=== PATIENT | male | born 1960 | race Hispanic/Latino ===

== ENCOUNTER 2018-03-11 09:55 | Emergency (ER) | payer OTHER ==
--- OUTSIDE RECORDS SUMMARY | 2018-03-11 09:57 | XMS REPORT | Clinical Summary ---
:1960 Author Organization [facility] Address [address] [place] [address] Care Team Providers Name Role Phone Khanh Charles MD Primary Care Provider Allergies No Known Allergies Current Medications Prescription Sig. Disp. Refills Start Date End Date Status moxifloxacin Administer 1 drop Active (VIGAMOX) 0.5 % into the left eye ophthalmic solution 4 (four) times a day. keTOROlac (ACULAR Administer 1 drop 5 mL 0 02/10/2018 Active LS) 0.4 % into the left eye ophthalmic solution 2 (two) times a day. prednisoLONE Administer 1 drop 10 mL 0 02/10/2018 Active acetate (PRED into the left eye FORTE) 1 % 2 (two) times a ophthalmic day. suspension prednisoLONE Administer 1 drop 02/10/2018 Discontinued acetate (PRED into the left eye FORTE) 1 % 4 (four) times a ophthalmic day. suspension keTOROlac (ACULAR Administer 1 drop 02/10/2018 Discontinued LS) 0.4 % into the left eye ophthalmic solution 4 (four) times a day. Active Problems Problem Noted Date Pseudophakia 01/26/2018 Overview: OS 01/26/18 PCB00 24.0 OD 03/02/18 PCB00 25.0 Last Assessment & Plan: OS 01/26/18 PCB00 24.0 OD 03/02/18 PCB00 25.0 s/p phaco/PCIOL . Doing well. Take drops as per handout/instruction sheet. IOP 37--added Combigan OD BID--sample given last visit for other eye. ATs PRN Patient defers return for followup, will call if any problems, otherwise [address] Keenan. Combined forms of age-related cataract of both eyes 01/13/2018 Last Assessment & Plan: Visually significant. The risks/benefits/alternatives of cataract surgery were discussed with the patient. He understands and will proceed with phaco OS then OD. OS 01/26/18, OD 03/02/18. History of LASIK, will need post-LVC calcs. Patient defers premium options and defers FLACS. Understands will need glasses afterwards. Post-LVC calcs done. OS USE PCB00 24.0 [LATER OD USE PCB00 25.0] History of laser refractive surgery 01/13/2018 Overview: LASIK OU mid . Last Assessment & Plan: LASIK OU mid . Encounters Date Type Specialty Care Team Description 03/03/2018 Office Visit Ophthalmology Mohan Pete Pseudophakia (Primary Dx) MD Dwight 03/02/2018 [facility] Plastic Surgery Mohan Pete MD 03/02/2018 Anesthesia Event Plastic Surgery Alexa Rosa MD 03/02/2018 Procedure Pass Plastic Surgery 03/02/2018 Surgery Plastic Surgery Mohan Pete PHACOEMULSIFICATION WITH MD Dwight INTRAOCULAR LENS IMPLANT, RIGHT EYE 02/10/2018 Telephone Ophthalmology Mohan Pete MD 02/02/2018 Telephone Ophthalmology Mohan Pete MD 02/01/2018 Telephone Ophthalmology Mohan Pete MD 01/27/2018 Office Visit Ophthalmology Mohan Pete Pseudophakia (Primary Dx) MD Dwight 01/26/2018 [facility] Plastic Surgery Mohan Pete MD 01/26/2018 Telephone Ophthalmology Mohan Pete MD 01/26/2018 Anesthesia Event Plastic Surgery Alexa Rosa MD 01/26/2018 Procedure Pass Plastic Surgery 01/26/2018 Surgery Plastic Surgery Mohan Pete PHACO W/ IOL MD Dwight 01/13/2018 Office Visit Ophthalmology Mohan Pete Combined forms of age- related cataract of both eyes (Primary Dx); MD Dwight Nuclear sclerotic cataract of both eyes 01/06/2018 Telephone Ophthalmology Yaz Matias MD 12/16/2017 Office Visit Ophthalmology Yaz Matias Nuclear age-related MD Venkat cataract, both eyes Nilesh Keenan (Primary Dx) II, MD after 03/10/2017 Social History Tobacco Use Types Packs/Day Years Used Date Never Smoker Smokeless Tobacco: Never Used Alcohol Use Drinks/Week oz/Week Comments No Sex Assigned at Date Recorded Not on file Last Filed Vital Signs Vital Sign Reading Time Taken Blood Pressure 108/66 03/02/2018 8:00 AM CDT Pulse 69 03/02/2018 8:00 AM CDT Temperature 36.5 C (97.7 F) 03/02/2018 7:54 AM CDT Respiratory Rate 16 03/02/2018 8:00 AM CDT Oxygen Saturation 94% 03/02/2018 8:00 AM CDT Inhaled Oxygen Concentration - - Weight 88.2 kg (194 lb 6.4 oz) 03/02/2018 7:42 AM CDT Height 167.6 cm (5' 6") 03/02/2018 7:42 AM CDT Body Mass Index 31.38 03/02/2018 7:42 AM CDT Plan of Treatment Date Type Specialty Care Team Description 03/31/2018 Office Visit Ophthalmology Nilesh Keenan II, MD [address] [place] [address] [phone] Health Maintenance Due Date Last Done Comments COLONOSCOPY 2012 SHINGRIX VACCINE (#1) 2012 INFLUENZA VACCINE 06/09/2018 Implants Implanted Type Area Biomass Plant Technician Device Expiration Model / Serial Identifier Date / Lot Lens Iol Tecnis Monofocal Preloaded 1 Piece Pcb 24.0d - [id number] Left: [employer] 12/22/2020 [id number] / Implanted: 01/26/2018 (Quantity not on file) [employer] [id number] / [id number] Lens Iol Tecnis Monofocal Preloaded 1 Piece Pcb 25.0d - [id number] Right: [employer] 05/29/2020 [id number] / Implanted: 03/02/2018 (Quantity not on file) [employer] [id number] / [id number] Procedures Procedure Name Priority Date/Time Associated Comments Diagnosis PHACOEMULSIFICATION WITH 03/02/2018 7:30 AM Combined forms of INTRAOCULAR LENS IMPLANT, CDT age-related RIGHT EYE cataract, right eye Case Notes REG LENS Special Needs REG LENS PHACO W/ IOL 01/26/2018 9:00 AM CDT Combined forms of age-related cataract , left eye Case Notes REG LENS Special Needs REG LENS CORNEAL TOPOGRAPHY - Routine 01/13/2018 2:27 PM Nuclear sclerotic Results for this OU - BOTH EYES ARCHITECT MARINE cataract of both procedure are in eyes the results section. IOL BIOMETRY - OU - Routine 01/13/2018 2:27 PM Nuclear sclerotic Results for this BOTH EYES ARCHITECT MARINE cataract of both procedure are in eyes the results section. after 03/10/2017 Results Corneal Topography, Galilei - OU (01/13/2018 2:27 PM) Narrative Right Eye Findings include previous refractive surgery. Left Eye Findings include previous refractive surgery. IOL Master - OU - Both Eyes (01/13/2018 2:27 PM) Component Value Ref Range Axial Length-OD 25.42 Axial Length-OS 25.25 Anterior Chamber Depth-OD 3.21 Anterior Chamber Depth-OS 3.32 White to White-OD 13.0 White to White-OS 12.9 Narrative Right Eye Axial length was 25.42. White to white was 13.0. AC Depth was 3.21. Left Eye Axial length was 25.25. White to white was 12.9. AC Depth was 3.32. Notes IOL CALCULATION ORDER SHEET DATE OF TESTIN01/13/18 DATE OF SURGERY: ODOS RK PRK LASIK SILICONEOIL SCLERAL BUCKLE PKP CONTACT LENSES: DATE LAST WORN:TYPE:RGP: SOFT: DOMINANT EYE: TARGET REFRACTION: ODOS TESTING RESULTS: OD OS K1 K2 AXIS TOTAL CYL K1 K2 AXIS TOTAL CYL AUTO K 37.50 37.75 115 0.25 38.50 38.75 145 0.25 IOLMASTER 37.41 37.75 110 0.33 38.50 38.79 143 0.29 ATLAS GALILEI SimK GALILEI TCP AXIAL LENGTH (in mm) OD OS IOL MASTER 25.42 25.25 SONOMED/ACCUTOME IMMERSION Dr BeaverDr. Shubham MATIAS FINAL IOL LENS CHOICE:OD OS BACKUP LENS :OD OS after 03/10/2017 Insurance Payer Benefit Plan / Group Subscriber ID Type Phone Address AETNA AETNA HMO,POS,EPO, MC/EC xxxxxxxxxx HMO
[2018-03-11] MEDS ORDERED: TETRACAINE HCL 0.5% 2ML OPTH ONE (10:36)
[2018-03-11] MEDS ORDERED: FLUORESCEIN SODIUM 0.6 MG/WRAP ONE (10:36)
--- NOTE | 2018-03-11 11:20 | ER ---
Nurse's Notes [facility] Name: tK Perez Age: 57 yrs Sex: Male : 1960 Arrival Date: 03/11/2018 Time: 10:00 Bed 9 Private MD: Erickson Charles Diagnosis: Conjunctival hemorrhage, left eye-with abrasion Presentation: 03/11 10:08 Presenting complaint: Patient states: hit left eye with bungee cord about 30 minutes, iw now has pain and redness in eye, recently had implant for cataract X 5 weeks ago, pt c/o blurry vision to left eye but slowly getting better. Transition of care: patient was not received from another setting of care. Onset of symptoms was March 11, 2018. Initial Sepsis Screen: Does the patient meet any 2 criteria? No. Patient's initial sepsis screen is negative. Does the patient have a suspected source of infection? No. Patient's initial sepsis screen is negative. Care prior to arrival: None. 10:08 Method Of Arrival: Ambulatory iw 10:08 Acuity: VANE 3 iw Triage Assessment: 11:52 General: Appears in no apparent distress. uncomfortable, Behavior is calm, cooperative, hj appropriate for age. Pain: Complains of pain in left eye. Historical: - Allergies: 10:11 NKA; iw - Home Meds: 10:11 None [Active]; iw - PMHx: 10:11 None; iw - PSHx: 10:11 cataract; iw - Immunization history:: Adult Immunizations up to date. - Social history:: Smoking status: Patient/guardian denies using tobacco. Screenin:52 Abuse screen: Denies threats or abuse. Denies injuries from another. Nutritional hj screening: No deficits noted. Tuberculosis screening: No symptoms or risk factors identified. Fall Risk None identified. Vital Signs: 10:11 BP 131 / 99; Pulse 81; Resp 16; Temp 98.1; Pulse Ox 97% on R/A; Weight 86.18 kg; Height iw 5 ft. 6 in. (167.64 cm); Pain 0/10; 10:11 Body Mass Index 30.67 (86.18 kg, 167.64 cm) iw Visual Acuity: 11:05 Left Eye Visual acuity 20/50, Pupil size 3 mm, ; Right Eye Visual acuity 20/50, Pupil bm6 size 3 mm, ; Both Eyes Visual acuity 20/40; Without Lenses; ED Course: 10:00 Patient arrived in ED. mr 10:00 Erickson Charles DO is Private Physician. mr 10:11 Triage completed. iw 10:11 Arm band placed on. iw 10:12 Clemencia Becerril, RN is Primary Nurse. iw 10:14 Barry Dueñas MD is Attending Physician. wa 10:22 Chano Zheng PA is PHCP. 11:53 Patient has correct armband on for positive identification. Bed in low position. Call hj light in reach. Side rails up X 1. 11:53 No provider procedures requiring assistance completed. Patient did not have IV access hj during this emergency room visit. Administered Medications: 11:08 Drug: Tetracaine Drops 0.5 % 1 drops Route: Ophthalmic; Site: left eye; iw 11:34 Not Given (Physician Discretion): Gentamicin Ointment 0.3 % 0.5 inches Ophthalmic once; cp Left Eye. apply to left eye 3 times daily for 7 days 11:52 Drug: Gentamicin Drops 0.3 % 2 drops Route: Ophthalmic; Site: left eye; 11:52 Follow up: Response: No adverse reaction Outcome: 11:19 Discharge ordered by MD. cp 11:53 Discharged to home ambulatory, with family. hj 11:53 Condition: stable 11:53 Discharge instructions given to patient, family, Instructed on discharge instructions, follow up and referral plans. medication usage, Demonstrated understanding of instructions, follow-up care, medications, Prescriptions given X 1. 11:53 Patient left the ED. Signatures: Lina Faustin mr Clemencia Becerril RN RN Miguel Marie RN RN hj Page, Corey, PA PA cp Murray, Brett bm6 Barry Dueñas MD MD wa
--- NOTE | 2018-03-11 11:20 | EDPHYS ---
Physician Documentation [facility] Name: Kt Perez Age: 57 yrs Sex: Male : 1960 Arrival Date: 03/11/2018 Time: 10:00 Bed 9 Private MD: Joey Charlesh ED Physician Barry Dueñas HPI: 03/11 11:00 This 57 yrs old Unknown Male presents to ER via Ambulatory with complaints of left eye cp injury. 11:00 The patient sustained reports strap swung back and struck left eye, to the left eye. cp Onset: The symptoms/episode began/occurred today. Patient wears glasses. 11:00 Associated signs and symptoms: Pertinent negatives: ear ache, fever, vision loss. cp Historical: - Allergies: 10:11 NKA; iw - Home Meds: 10:11 None [Active]; iw - PMHx: 10:11 None; iw - PSHx: 10:11 cataract; iw - Immunization history:: Adult Immunizations up to date. - Social history:: Smoking status: Patient/guardian denies using tobacco. ROS: 11:10 Constitutional: Negative for body aches, chills, fever, poor PO intake. cp 11:10 ENT: Negative for injury, pain, and discharge. cp 11:10 Eyes: Positive for injury or acute deformity, pain, redness, of the outer aspect of conjuctiva of left eye. 11:10 Cardiovascular: Negative for chest pain, palpitations. 11:10 Respiratory: Negative for cough, wheezing. 11:10 Abdomen/GI: Negative for nausea, vomiting, and diarrhea. 11:10 Skin: Negative for cellulitis, rash. 11:10 Neuro: Negative for altered mental status, headache, weakness. 11:10 All other systems are negative. Exam: 11:14 Visual Acuity: verbal report from tech. cp 11:14 Constitutional: This is a well developed, well nourished patient who is awake, alert, and in no acute distress. Head/Face: Normocephalic, atraumatic. 11:14 Eyes: Periorbital structures: appear normal, Pupils: equal, round, and reactive to cp light and accomodation, Extraocular movements: intact throughout, Conjunctiva: subconjunctival hemorrhage(s), seen in the left eye, lateral aspect, Corneas: abrasion, is not appreciated, foreign body, is not appreciated, a fluorescein strip employed to appreciate the findings, Sclera: abrasion, of the lateral aspect of conjunctiva of left eye, Anterior chamber: no acute changes, Lids and lashes: appear normal, bilaterally, Visual bradley: are intact, Examination of the other eye reveals no obvious gross abnormality. 11:14 ENT: External ear(s): are unremarkable, Ear canal(s): are normal, clear, TM's: dullness, bilaterally, Nose: is normal, Mouth: Lips: moist, Oral mucosa: pink and intact, moist, Posterior pharynx: is normal, airway is patent, no erythema, no exudate. 11:14 Neck: C-spine: vertebral tenderness, is not appreciated, crepitus, is not appreciated, ROM/movement: is normal, is supple, without pain, no range of motions limitations, no nuchal rigidity. 11:14 Chest/axilla: Inspection: normal, Palpation: is normal, no crepitus, no tenderness. 11:14 Cardiovascular: Rate: normal, Rhythm: regular. 11:14 Respiratory: the patient does not display signs of respiratory distress, Respirations: normal, no use of accessory muscles, no splinting, labored breathing, is not present, Breath sounds: are clear throughout, no decreased breath sounds, no stridor, no wheezing. 11:14 Abdomen/GI: Exam negative for discomfort, distension, guarding, Inspection: abdomen appears normal. 11:14 Skin: cellulitis, is not appreciated, no rash present. 11:14 Neuro: Orientation: to person, place \T\ time. Cerebellar function: is grossly normal, Motor: moves all fours, strength is normal, Sensation: no obvious gross deficits. Vital Signs: 10:11 BP 131 / 99; Pulse 81; Resp 16; Temp 98.1; Pulse Ox 97% on R/A; Weight 86.18 kg; Height iw 5 ft. 6 in. (167.64 cm); Pain 0/10; 10:11 Body Mass Index 30.67 (86.18 kg, 167.64 cm) iw Visual Acuity: 11:05 Left Eye Visual acuity 20/50, Pupil size 3 mm, ; Right Eye Visual acuity 20/50, Pupil bm6 size 3 mm, ; Both Eyes Visual acuity 20/40; Without Lenses; MDM: 10:14 Patient medically screened. ok 11:18 Data reviewed: vital signs, nurses notes, and as a result, I will discharge patient. 11:18 Differential diagnosis: Corneal abrasion of left eye. Corneal ulcer of left eye. cp Foreign body in left eye. Counseling: I had a detailed discussion with the patient and/or guardian regarding: the historical points, exam findings, and any diagnostic results supporting the discharge/admit diagnosis, the need for outpatient follow up, an opthalmologist, to return to the emergency department if symptoms worsen or persist or if there are any questions or concerns that arise at home. Response to treatment: the patient's symptoms have markedly improved after treatment. 03/11 10:24 Order name: Visual Acuity; Complete Time: 11:08 03/11 10:24 Order name: Eye Tray; Complete Time: 10:37 03/11 10:24 Order name: Fluoresene Opth strip; Complete Time: 10:37 03/11 10:33 Order name: Misc. Order: eye irrigation; Complete Time: 11:08 Administered Medications: 11:08 Drug: Tetracaine Drops 0.5 % 1 drops Route: Ophthalmic; Site: left eye; 11:34 Not Given (Physician Discretion): Gentamicin Ointment 0.3 % 0.5 inches Ophthalmic once; cp Left Eye. apply to left eye 3 times daily for 7 days 11:52 Drug: Gentamicin Drops 0.3 % 2 drops Route: Ophthalmic; Site: left eye; 11:52 Follow up: Response: No adverse reaction Disposition: 03/12 07:03 Co-signature as Attending Physician, Barry Dueñas MD I agree with the assessment and ok plan of care. Disposition: 03/11/18 11:19 Discharged to Home. Impression: Conjunctival hemorrhage, left eye - with abrasion. - Condition is Stable. - Discharge Instructions: Subconjunctival Hemorrhage. - Prescriptions for Gentamicin 0.3 % Ophthalmic Drops - instill 1 drop by OPHTHALMIC route every 4 hours for 7 days; 1 bottle. - Medication Reconciliation Form, Thank You Letter, Antibiotic Education, Prescription Opioid Use form. - Follow up: Private Physician; When: primary eye doctor tomorrow; Reason: Recheck today's complaints. - Problem is new. - Symptoms have improved. Signatures: Jone, ClemenciaRAMYA morales RN, Henry, RN RN hj Page, Corey, PA PA cp Appiah, William, MD MD wa Corrections: (The following items were deleted from the chart) 03/11 11:53 11:19 03/11/2018 11:19 Discharged to Home. Impression: Conjunctival hemorrhage, left hj eye - with abrasion. Condition is Stable. Forms are Medication Reconciliation Form, Thank You Letter, Antibiotic Education, Prescription Opioid Use. Follow up: Private Physician; When: primary eye doctor tomorrow; Reason: Recheck today's complaints. Problem is new. Symptoms have improved. cp
[2018-03-11] MEDS ORDERED: GENTAMICIN 0.3% OPTH OINT 3.5GM LEFT EYE SCH (11:30)
[2018-03-11] MEDS ORDERED: GENTAMICIN 0.3% OPTH DROP 5ML ONE (11:40)
== END 2018-03-11 11:53 | disposition home or self-care (01) ==
LOC: ER 09:55
DX: H11.32 Conjunctival hemorrhage, left eye (principal); S05.02XA Injury of conjunctiva and corneal abrasion without foreign body, left eye, initial encounter; S00.212A Abrasion of left eyelid and periocular area, initial encounter; W22.8XXA Striking against or struck by other objects, initial encounter; Y92.9 Unspecified place or not applicable
CPT/HCPCS: 99283

== ENCOUNTER 2019-02-21 10:28 | Emergency (ER) | payer OTHER ==
--- OUTSIDE RECORDS SUMMARY | 2019-02-21 10:30 | XMS REPORT | Clinical Summary ---
:1960 Author Organization [facility] Address [address] [place] [address] Care Team Providers Name Role Phone Khanh Charles MD Primary Care Provider Allergies No Known Allergies Medications Medication Sig Dispensed Refills Start Date End Date Status peg 400-propylene Use one drop in 1.5 mL 2 05/28/2018 Active glycol (SYSTANE, the morning both PROPYLENE GLYCOL,) eyes and as 0.4-0.3 % drops needed for dryness moxifloxacin Administer 1 0 Discontinued (VIGAMOX) 0.5 % drop into the 8 ophthalmic left eye 4 solution (four) times a day. keTOROlac (ACULAR Administer 1 5 mL 0 02/10/2018 Discontinued LS) 0.4 % drop into the 8 ophthalmic left eye 2 (two) solution times a day. prednisoLONE Administer 1 10 mL 0 02/10/2018 Discontinued acetate (PRED drop into the 8 FORTE) 1 % left eye 2 (two) ophthalmic times a day. suspension brimonidine-timolo Administer 1 0 Discontinued l (COMBIGAN) drop to the 8 0.2-0.5 % right eye 3 ophthalmic (three) times a solution day. gentamicin Administer 1 0 Discontinued (GARAMYCIN) 0.3 % drop into the 8 ophthalmic left eye every 4 solution (four) hours. 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 (Primary Dx) 03/19/2018 Telephone Ophthalmology Mohan Pete MD 03/15/2018 Telephone Ophthalmology Mohan Pete MD 03/12/2018 Office Visit Ophthalmology Benjamin, Hemorrhage of MD Samantha conjunctiva, left Nilesh Keenan (Primary Dx) MD SHAY 03/03/2018 Office Visit Ophthalmology Mohan Pete Pseudophakia (Primary Dx) MD Dwight 03/02/2018 Surgery Plastic Surgery Mohan Pete PHACOEMULSIFICATION WITH MD Dwight INTRAOCULAR LENS IMPLANT, RIGHT EYE 03/02/2018 Anesthesia Event Plastic Surgery Alexa Rosa MD 03/02/2018 [facility] Plastic Surgery Mohan Pete Encounter MD Dwight after 02/20/2018 Social History Tobacco Use Types Packs/Day Years Used Date Never Smoker Smokeless Tobacco: Never Used Alcohol Use Drinks/Week oz/Week Comments No Sex Assigned at Date Recorded Not on file Job Start Date Occupation Industry Not on file Not on file Not on file Travel History Travel Start Travel End No recent travel history available. Last Filed Vital Signs Vital Sign Reading [...] Treatment Date Type Specialty Care Team Description 03/04/2019 Office Visit Ophthalmology Keenan, Nilesh Navarro II, [place] [address] [address] Health Maintenance Due Date Last Done Comments COLON CANCER SCREENING 2012 SHINGLES VACCINES (#1) 2012 INFLUENZA VACCINE 06/09/2019 Implants Implanted Type Area Translator Device Shelf Model / Serial Identifier Expiration / Lot Date Lens Iol Tecnis Monofocal Preloaded 1 Piece Pcb 24.0d - [id number]: [employer] 12/22/2020 [id number] / Implanted: 01/26/2018 (Quantity not on file) [employer] [id number] / [id number] Lens Iol Tecnis Monofocal Preloaded 1 Piece Pcb 25.0d - [id number] Right: [employer] 05/29/2020 [id number] / Implanted: 03/02/2018 (Quantity not on file) [employer] [id number] / [id number] Procedures Procedure Name Priority Date/Time Associated Diagnosis Comments PHACOEMULSIFICATION, 03/02/2018 7:30 AM Combined forms of CATARACT, WITH IOL CDT age-related cataract, IMPLANTATION right eye Case Notes REG LENS Special Needs REG LENS after 02/20/2018 Results Not on fileafter 02/20/2018 Insurance Payer Benefit Plan / Group Subscriber ID Type Phone Address AETNA AETNA HMO,POS,EPO, MC/EC xxxxxxxxxx HMO Advance Directives Patient has advance care planning documents on file. For more information, please contact:Laurent Buckley[address] [place] [address]
--- OUTSIDE RECORDS SUMMARY | 2019-02-21 10:30 | XMS REPORT ---
:1960 Author Organization [employer] Care Team Providers Name Role Phone Erickson Charles Provider Role Unavailable Allergies, Adverse Reactions, Alerts Substance Reaction Event Type N.K.D.A. Info Not Available Non Drug Allergy Problems Problem Type Condition Code Onset Dates Condition Status Assessment Prediabetes R73.03 Active Assessment Elevated BP without diagnosis of R03.0 Active hypertension Problem Elevated BP without diagnosis of R03.0 Active hypertension Problem Prediabetes R73.03 Active Problem Mixed hyperlipidemia E78.2 Active Assessment Mixed hyperlipidemia E78.2 Active Assessment Status post cataract extraction, Z98.49 Active unspecified laterality Problem Status post cataract extraction, Z98.49 Active unspecified laterality Medications No Known Medications Results No Known Results Summary Purpose [employer] Submission
--- OUTSIDE RECORDS SUMMARY | 2019-02-21 10:31 | XMS REPORT ---
:1960 Author Organization [employer] Care Team Providers Name Role Phone Erickson Charles Provider Role Unavailable Allergies, Adverse Reactions, Alerts Substance Reaction Event Type N.K.D.A. Info Not Available Non Drug Allergy Problems Problem Type Condition Code Onset Dates Condition Status Assessment Elevated BP without diagnosis of R03.0 Active hypertension Assessment Status post cataract extraction, Z98.49 Active unspecified laterality Assessment Prediabetes R73.03 Active Assessment Encounter for dietary counseling and Z71.3 Active surveillance Assessment Adult BMI 32.0-32.9 kg/sq m Z68.32 Active Problem Mixed hyperlipidemia E78.2 Active Problem Elevated BP without diagnosis of R03.0 Active hypertension Problem Adult BMI 32.0-32.9 kg/sq m Z68.32 Active Assessment Mixed hyperlipidemia E78.2 Active Problem Prediabetes R73.03 Active Problem Status post cataract extraction, Z98.49 Active unspecified laterality Medications No Known Medications Results No Known Results Summary Purpose [employer] Submission
--- OUTSIDE RECORDS SUMMARY | 2019-02-21 10:31 | XMS REPORT ---
:1960 Author Organization [employer] Care Team Providers Name Role Phone Melvin Erickson Provider Role Unavailable Allergies No Known Allergies Problems Problem Type Condition Code Onset Dates Condition Status Assessment Encounter for screening for other Z11.59 Active viral diseases Assessment Mixed hyperlipidemia E78.2 Active Assessment Elevated BP without diagnosis of R03.0 Active hypertension Assessment Need for Tdap vaccination Z23 Active Assessment Pain of right middle finger M79.644 Active Problem Elevated BP without diagnosis of R03.0 Active hypertension Problem Prediabetes R73.03 Active Problem Mixed hyperlipidemia E78.2 Active Assessment Encounter for preventative adult Z00.00 Active health care examination Assessment Prediabetes R73.03 Active Problem Status post cataract extraction, Z98.49 Active unspecified laterality Medications No Known Medications Results No Known Results Immunizations Vaccine Administration Date TDAP > 7 Years-Adacel May 26, 2018 Summary Purpose [employer] Submission
[2019-02-21 13:33] LABS: Absolute Monocytes 0.9 K/uL (0.1-1.3); Absolute Neutrophil 6.7 K/uL (1.8-8.0); Basophils % 0.4 % (0-1.3); Eosinophils % 2.7 % (0-4.4); Hematocrit 49.4 % (39.6-49.0); Lymphocytes % 19.8 % (15.3-44.8); MPV 7.8 fL (7.6-11.3); Monocytes % 8.9 % (3.3-12.3); RBC Red Blood Cell Count 5.47 M/uL (4.33-5.43)
[2019-02-21 13:37] LABS: Protime INR 1.19
--- NOTE | 2019-02-21 13:44 | RAD REPORT ---
EXAM DESCRIPTION: US - Extremity Venous [facility] - 02/21/2019 1:36 pm CLINICAL HISTORY: PAIN Leg swelling and edema. COMPARISON: No comparisons FINDINGS: Left lower extremity venous system was interrogated with Doppler technique. Normal flow, c ompressibility and augmentation was noted. There is no DVT present. IMPRESSION: No evidence of left lower extremity deep venous thrombosis.
[2019-02-21 13:51] LABS: ALT/SGPT 33 U/L (12-78); AST/SGOT 15 U/L (15-37); Albumin 3.8 g/dL (3.4-5.0); Alkaline Phosphatase 89 U/L (45-117); BUN Blood Urea Nitrogen 13 mg/dL (7-18); Bicarbonate 30 mmol/L (21-32); Bilirubin Total 0.6 mg/dL (0.2-1.0); Glucose Level 94 mg/dL (74-106); Potassium 4.3 mmol/L (3.5-5.1); Protein, Total 7.2 g/dL (6.4-8.2); Sodium Level 141 mmol/L (136-145)
[2019-02-21] MEDS ORDERED: NA CHLORIDE 0.9% 500 ML ONE (13:52)
--- NOTE | 2019-02-21 14:01 | ER ---
Nurse's Notes [facility] Name: Kt Perez Age: 58 yrs Sex: Male : 1960 Arrival Date: 02/21/2019 Time: 10:29 Bed 25 Private MD: Erickson Charles Diagnosis: Pain in left leg Presentation: 02/21 10:40 Presenting complaint: Patient states: Diagnosed with DVT to L lower extremity at [facility] ER 2 days ago. Pt was discharged home with Xarelto, but is back today because his pain is worse. Transition of care: patient was not received from another setting of care. Onset of symptoms was February 19, 2019. Risk Assessment: Do you want to hurt yourself or someone else? Patient reports no desire to harm self or others. Initial Sepsis Screen: Does the patient meet any 2 criteria? No. Patient's initial sepsis screen is negative. Does the patient have a suspected source of infection? No. Patient's initial sepsis screen is negative. Care prior to arrival: None. 10:40 Method Of Arrival: Ambulatory 10:40 Acuity: VANE 3 ss Historical: - Allergies: 10:42 NKA; ss - Home Meds: 10:42 Xarelto 15 mg oral tab twice a day [Active]; ss - PMHx: 10:42 DVT; ss - PSHx: 10:42 cataract; ss - Immunization history:: Adult Immunizations up to date. - Social history:: Smoking status: Patient/guardian denies using tobacco. - Ebola Screening: : Patient denies exposure to infectious person Patient denies travel to an Ebola-affected area in the 21 days before illness onset. - Family history:: not pertinent. Screenin:50 Abuse screen: Denies threats or abuse. Denies injuries from another. Nutritional aj1 screening: No deficits noted. Tuberculosis screening: No symptoms or risk factors identified. 14:48 Fall Risk None identified. aj1 Assessment: 11:50 General: Appears in no apparent distress. uncomfortable, Behavior is calm, cooperative, aj1 appropriate for age. Pain: Complains of pain in posterior aspect of left knee Pain currently is 7 out of 10 on a pain scale. Aggravated by walking. Neuro: Level of Consciousness is awake, alert, obeys commands, Oriented to person, place, time, situation. Cardiovascular: Patient's skin is warm and dry. Respiratory: Airway is patent Respiratory effort is even, unlabored, Respiratory pattern is regular, symmetrical. GI: No signs and/or symptoms were reported involving the gastrointestinal system. : No signs and/or symptoms were reported regarding the genitourinary system. EENT: No signs and/or symptoms were reported regarding the EENT system. Derm: Skin is pink, warm \T\ dry. normal. Musculoskeletal: Range of motion: intact in all extremities. 12:50 Reassessment: Patient appears in no apparent distress at this time. No changes from aj1 previously documented assessment. Patient and/or family updated on plan of care and expected duration. Pain level reassessed. Patient is alert, oriented x 3, equal unlabored respirations, skin warm/dry/pink. 13:50 Reassessment: Patient appears in no apparent distress at this time. No changes from aj1 previously documented assessment. Patient and/or family updated on plan of care and expected duration. Pain level reassessed. Patient is alert, oriented x 3, equal unlabored respirations, skin warm/dry/pink. 14:46 Reassessment: Patient appears in no apparent distress at this time. No changes from aj1 previously documented assessment. Patient and/or family updated on plan of care and expected duration. Pain level reassessed. Patient is alert, oriented x 3, equal unlabored respirations, skin warm/dry/pink. Vital Signs: 10:42 BP 146 / 88; Pulse 88; Resp 16; Temp 97.9(TE); Pulse Ox 97% on R/A; Weight 86.18 kg; Height 5 ft. 6 in. (167.64 cm); Pain 7/10; 13:54 BP 125 / 90; Pulse 61; Resp 18; Pulse Ox 98% on R/A; aj1 14:47 BP 132 / 89; Pulse 72; Resp 18; Pulse Ox 99% on R/A; aj1 10:42 Body Mass Index 30.67 (86.18 kg, 167.64 cm) ED Course: 10:29 Patient arrived in ED. as 10:30 Erickson Charles DO is Private Physician. as 10:41 Triage completed. ss 10:42 Arm band placed on left wrist. ss 11:49 Erica Moon RN is Primary Nurse. aj1 11:49 Chano Cuello MD is Attending Physician. barbra 11:50 Patient has correct armband on for positive identification. Bed in low position. Call aj1 light in reach. Side rails up X 1. 11:50 No provider procedures requiring assistance completed. aj1 13:18 Initial lab(s) drawn, by me, sent to lab. Inserted saline lock: 22 gauge in right lt1 antecubital area, using aseptic technique. Missed attempt(s): 20 gauge in left antecubital area. 13:37 US Extremity Venous Unilateral Ltd In Process Unspecified. EDMS 14:00 Erickson Charles DO is Referral Physician. barbra 14:48 IV discontinued, intact, bleeding controlled, No redness/swelling at site. Pressure aj1 dressing applied. Administered Medications: 13:43 Drug: NS 0.9% 500 ml Route: IV; Rate: bolus; Site: right antecubital; aj1 14:15 Follow up: IV Status: Completed infusion; IV Intake: 500ml aj1 Intake: 14:15 IV: 500ml; Total: 500ml. aj1 Outcome: 14:00 Discharge ordered by . barbra 14:48 Discharged to home ambulatory, with family. aj1 14:48 Condition: good 14:48 Discharge instructions given to patient, family, Instructed on discharge instructions, follow up and referral plans. no drinking with medication, no driving heavy equipment, medication usage, Demonstrated understanding of instructions, follow-up care, medications, Prescriptions given X 2. 14:49 Patient left the ED. aj1 Signatures: Dispatcher [employer] Erica Rios RN RN aj Chano Cuello MD MD cha Martinez, Amelia as Smirch, Shelby, RN RN ss Tran, Leah [facility]
--- NOTE | 2019-02-21 14:01 | EDPHYS ---
Physician Documentation [facility] Name: Kt Perez Age: 58 yrs Sex: Male : 1960 Arrival Date: 02/21/2019 Time: 10:29 Bed 25 Private MD: Melvin Erickson ED Physician Chano Cuello HPI: 02/21 12:55 This 58 yrs old Male presents to ER via Ambulatory with complaints of Leg Pain barbra - dvt. 12:55 The patient presents with decreased range of motion, pain. The complaints affect the barbra lateral aspect of left knee, posterior aspect of left knee and medial aspect of left knee. Context: The problem was sustained at an unknown site. Onset: The symptoms/episode began/occurred 2 week(s) ago. Modifying factors: The symptoms are alleviated by elevating leg, remaining still, the symptoms are aggravated by nothing. Associated signs and symptoms: The patient has no apparent associated signs or symptoms. Severity of symptoms: At their worst the symptoms were mild, moderate, in the emergency department the symptoms are unchanged. The patient has not experienced similar symptoms in the past. Historical: - Allergies: 10:42 NKA; ss - Home Meds: 10:42 Xarelto 15 mg oral tab twice a day [Active]; ss - PMHx: 10:42 DVT; ss - PSHx: 10:42 cataract; ss - Immunization history:: Adult Immunizations up to date. - Social history:: Smoking status: Patient/guardian denies using tobacco. - Ebola Screening: : Patient denies exposure to infectious person Patient denies travel to an Ebola-affected area in the 21 days before illness onset. - Family history:: not pertinent. ROS: 12:55 Constitutional: Negative for fever, chills, and weight loss, Eyes: Negative for injury, barbra pain, redness, and discharge, ENT: Negative for injury, pain, and discharge, Neck: Negative for injury, pain, and swelling, Cardiovascular: Negative for chest pain, palpitations, and edema, Respiratory: Negative for shortness of breath, cough, wheezing, and pleuritic chest pain, Abdomen/GI: Negative for abdominal pain, nausea, vomiting, diarrhea, and constipation, Back: Negative for injury and pain, : Negative for injury, bleeding, discharge, and swelling, Skin: Negative for injury, rash, and discoloration, Neuro: Negative for headache, weakness, numbness, tingling, and seizure, Psych: Negative for depression, anxiety, suicide ideation, homicidal ideation, and hallucinations, Allergy/Immunology: Negative for hives, rash, and allergies, Endocrine: Negative for neck swelling, polydipsia, polyuria, polyphagia, and marked weight changes, Hematologic/Lymphatic: Negative for swollen nodes, abnormal bleeding, and unusual bruising. 12:55 MS/extremity: Positive for pain, of the left leg and posterior aspect of left knee. Exam: 12:55 Constitutional: This is a well developed, well nourished patient who is awake, alert, barbra and in no acute distress. Head/Face: Normocephalic, atraumatic. Eyes: Pupils equal round and reactive to light, extra-ocular motions intact. Lids and lashes normal. Conjunctiva and sclera are non-icteric and not injected. Cornea within normal limits. Periorbital areas with no swelling, redness, or edema. ENT: Nares patent. No nasal discharge, no septal abnormalities noted. Tympanic membranes are normal and external auditory canals are clear. Oropharynx with no redness, swelling, or masses, exudates, or evidence of obstruction, uvula midline. Mucous membranes moist. Neck: Trachea midline, no thyromegaly or masses palpated, and no cervical lymphadenopathy. Supple, full range of motion without nuchal rigidity, or vertebral point tenderness. No Meningismus. Chest/axilla: Normal chest wall appearance and motion. Nontender with no deformity. No lesions are appreciated. Cardiovascular: Regular rate and rhythm with a normal S1 and S2. No gallops, murmurs, or rubs. Normal PMI, no JVD. No pulse deficits. Respiratory: Lungs have equal breath sounds bilaterally, clear to auscultation and percussion. No rales, rhonchi or wheezes noted. No increased work of breathing, no retractions or nasal flaring. Abdomen/GI: Soft, non-tender, with normal bowel sounds. No distension or tympany. No guarding or rebound. No evidence of tenderness throughout. Back: No spinal tenderness. No costovertebral tenderness. Full range of motion. Male : Normal genitalia with no discharge or lesions. Skin: Warm, dry with normal turgor. Normal color with no rashes, no lesions, and no evidence of cellulitis. Neuro: Awake and alert, GCS 15, oriented to person, place, time, and situation. Cranial nerves II-XII grossly intact. Motor strength 5/5 in all extremities. Sensory grossly intact. Cerebellar exam normal. Normal gait. Psych: Awake, alert, with orientation to person, place and time. Behavior, mood, and affect are within normal limits. 12:55 Musculoskeletal/extremity: DVT Exam: no swelling, negative Homans' sign noted on exam, no appreciated bluish discoloration, no erythema, no increased warmth, pain, tenderness. Vital Signs: 10:42 BP 146 / 88; Pulse 88; Resp 16; Temp 97.9(TE); Pulse Ox 97% on R/A; Weight 86.18 kg; ss Height 5 ft. 6 in. (167.64 cm); Pain 7/10; 13:54 BP 125 / 90; Pulse 61; Resp 18; Pulse Ox 98% on R/A; aj1 14:47 BP 132 / 89; Pulse 72; Resp 18; Pulse Ox 99% on R/A; aj1 10:42 Body Mass Index 30.67 (86.18 kg, 167.64 cm) MDM: 11:[address] [facility] 12:57 Data reviewed: vital signs, nurses notes, lab test result(s), radiologic studies, [facility] ultrasound. 02/21 12:55 Order name: CBC with Diff; Complete Time: 13:59 [facility] 02/21 12:55 Order name: Comprehensive Metabolic Panel; Complete Time: 13:59 [facility] 02/21 12:55 Order name: PT-INR; Complete Time: 13:59 [facility] 02/21 12:55 Order name: Ptt, Activated; Complete Time: 13:59 [facility] 02/21 12:55 Order name: US Extremity Venous Unilateral Ltd; Complete Time: 13:59 [facility] Administered Medications: 13:43 Drug: NS 0.9% 500 ml Route: IV; Rate: bolus; Site: right antecubital; aj 14:15 Follow up: IV Status: Completed infusion; IV Intake: 500ml aj Disposition: 02/21/19 14:00 Discharged to Home. Impression: Pain in left leg. - Condition is Stable. - Discharge Instructions: Musculoskeletal Pain, Knee Pain, Knee Pain, [id number]. - Prescriptions for Ibuprofen 600 mg Oral Tablet - take 1 tablet by ORAL route every 8 hours As needed take with food; 21 tablet. Tylenol- Codeine #3 300-30 mg Oral Tablet - take 2 tablets by ORAL route every 6 hours As needed; 24 tablet. - Medication Reconciliation Form, Thank You Letter, Antibiotic Education, Prescription Opioid Use form. - Follow up: Erickson Charles DO; When: 2 - 3 days; Reason: Recheck today's complaints, Continuance of care, Re-evaluation by your physician. - Problem is new. - Symptoms have improved. Signatures: Dispatcher [employer] EDErica Escalona RN RN aj1 Chano Cuello MD MD cha Smirch, Shelby, RN RN ss Corrections: (The following items were deleted from the chart) 14:49 14:00 02/21/2019 14:00 Discharged to Home. Impression: Pain in left leg. Condition is aj1 Stable. Forms are Medication Reconciliation Form, Thank You Letter, Antibiotic Education, Prescription Opioid Use. Follow up: Erickson Charles; When: 2 - 3 days; Reason: Recheck today's complaints, Continuance of care, Re-evaluation by your physician. Problem is new. Symptoms have improved. barbra
== END 2019-02-21 14:49 | disposition home or self-care (01) ==
LOC: ER 10:28
DX: M25.562 Pain in left knee (principal); Z86.718 Personal history of other venous thrombosis and embolism; Z79.01 Long term (current) use of anticoagulants
CPT/HCPCS: 36415; 80053; 85025; 85610; 85730; 93971; 96360; 99284